=== PATIENT | male | born 1995 | race Asian ===

== ENCOUNTER 2018-11-26 01:33 | Emergency (ER) | payer OTHER ==
--- NOTE | 2018-11-26 01:57 | ED ---
Syncope/Near Syncope - HPI Summary HPI Summary: A 22 y/o male presents to [facility] with a chief complaint of a syncopal episode tonight. He reports that he did not see this coming as he felt fine while shopping at [employer], being driven home by his friend, walking up the stairs to his apartment, until he got into his apartment and took his shoes off. The last thing he remembers is taking his shoes off and then he work up on the floor. He did have any warning signs of the syncopal episode, but reports that when he woke up he did feel dizzy. He denies SOB or sweating. He claims that two days ago he felt tachycardic and one week ago he had a light chest pain like someone was squeezing his heart. He reports a Hx of anemia and hypotension, as he claims that he used to get lightheaded years ago. He denies taking medications. - History Of Current Complaint Chief Complaint: EDSyncope Time Seen by Provider: 11/26/18 01:42 Hx Obtained From: Patient Onset/Duration: Sudden Onset, Lasting Minutes, Resolved Timing: Intermittent Episode Lasting - 1 episode, unknown length Context: Unwitnessed Activity At Onset: Other - walking into his apartment Associated Head Trauma: No Aggravating Factor(s): Nothing Alleviating Factor(s): Nothing Associated Signs And Symptoms: Negative - sweating, SOB, Other - dizziness - Allergies/Home Medications Allergies/Adverse Reactions: Allergies Allergy/AdvReac Type Severity Reaction Status Date / Time No Known Allergies Allergy Verified 11/26/18 02:10 PMH/Surg Hx/FS Hx/Imm Hx Endocrine/Hematology History: Reports: Hx Anemia Denies: Hx Diabetes Cardiovascular History: Reports: Hx Hypotension - Surgical History Surgery Procedure, Year, and Place: Oral surgery at 7 y/o Infectious Disease History: No Infectious Disease History: Denies: Traveled Outside the [place] in Last 30 Days - Family History Known Family History: Negative: Hypertension, Diabetes - Social History Occupation: Student Alcohol Use: None Hx Substance Use: No Substance Use Type: Reports: None Hx Tobacco Use: No Smoking Status (MU): Never Smoked Tobacco Review of Systems Negative: Fever, Skin Diaphoresis Negative: Shortness Of Breath Neurological: Other - 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 No murmurs. Normal distal pulses in tibial and radial bilaterally. Abdomen: Soft, nontender, normal active bowel sounds present Musculoskeletal: Normal, Strength/ROM Intact Neurological: A&Ox3, awake and alert, mentation is normal, speech is fluent and appropriate Psychiatric: affect is normal, does not appear anxious or depressed Triage Information Reviewed: Yes Vital Signs On Initial Exam: Initial Vitals Temp Pulse Resp BP Pulse Ox 98.7 F 85 16 144/83 96 11/26/18 01:34 11/26/18 01:34 11/26/18 01:34 11/26/18 01:34 11/26/18 01:34 Vital Signs Reviewed: Yes Diagnostics - Vital Signs Vital Signs Temp Pulse Resp BP Pulse Ox 11/26/18 01:34 98.7 F 85 16 144/83 96 - Laboratory Result Diagrams: 11/26/18 02:09 11/26/18 02:09 Lab Statement: Any lab studies that have been ordered have been reviewed, and results considered in the medical decision making process. - Radiology CXR Radiology Interpretation Completed By: ED Physician Summary of Radiographic Findings: no acute process. Pending official imaging report. - EKG 02:09 Cardiac Rate: NL - 82 bpm EKG Rhythm: Sinus Rhythm Summary of EKG Findings: NSR at 82 bpm with early repolarization. Course/Dx Course Of Treatment: This is a healthy 22-year-old man who suffered a bout of syncope this evening. This occurred after he walked up a flight of stairs with some groceries. He felt fine when he was shopping. There was no prodrome, which is somewhat concerning. His EKG looks fairly typical for a young man with some early repolarization, but no sign of conduction abnormality or Brugada pattern. Screening laboratory studies and EKG will be obtained to rule out electrolyte abnormality, anemia, or other significant problem. Barring any unforeseen at around here, or recurrence of his symptoms, I anticipate he will be discharged home. His CXR was negative and bloodwork and chemistries were obtained and WNL. The patient will be discharged and was instructed to follow up with cardiology. The patient is agreeable with this plan. - Diagnoses Provider Diagnoses: Syncope Discharge - Sign-Out/Discharge Documenting (check all that apply): Patient Departure - DC Patient Received Moderate/Deep Sedation with Procedure: No - Discharge Plan Condition: Good Disposition: HOME Patient Education Materials: Syncope (ED) Referrals: Marilin Garcia MD [Medical Doctor] - Additional Instructions: The cause of your fainting spell tonight is not entirely clear, but we did not turn up any significant problems on the testing we did tonight. I would suggest scheduling a followup visit with a academic vice president. If you pass out again, you should return here. Over the weekend, try to rest before heading back to classes on Wednesday. - Billing Disposition and Condition Condition: GOOD Disposition: Home - Attestation Statements Document Initiated by Shaune: Yes Documenting Scribe: Connor Sheehan Provider For Whom Maximiliano is Documenting (Include Credential): aKvon Moreno MD Scribe Attestation: IConnor, scribed for Kavon Moreno MD on 11/26/18 at 0642. Scribe Documentation Reviewed: Yes Provider Attestation: The documentation as recorded by the Connor bullock accurately reflects the service I personally performed and the decisions made by me, Kavon Moreno MD Status of Scribe Document: Viewed
[2018-11-26 02:17] LABS: ABS Basophils 0 10^3/ul (0-0.2); ABS Eosinophils 0.1 10^3/ul (0-0.6); ABS Lymphocytes 3.3 10^3/ul (1.0-4.8); ABS Monocytes 0.5 10^3/ul (0-0.8); ABS Neutrophils 3.5 10^3/ul (1.5-7.7); ABS Nucleated RBC 0 10^3/ul; Hematocrit 45 % (36-46); Hemoglobin 15.1 g/dL (14.0-18.0); Lymphocyte % 44.1 %; Mean Corpuscular HGB Conc 34 g/dL (31-36); Mean Corpuscular Hemoglobin 32 pg (27-31); Mean Corpuscular Volume 94 fL (80-94); Mean Platelet Volume 8.4 fL (7.4-10.4); Nucleated Red Blood Cells % 0.1; Platelet Count 191 10^3/uL (150-450); Red Blood Count 4.76 10^6 /uL (4.18-5.48); Red Cell Distribution Width 13 % (10.5-15); White Blood Count 7.4 10^3/uL (3.5-10.8)
[2018-11-26 02:36] LABS: ALT 18 U/L (7-52); Albumin 4.7 g/dL (3.2-5.2); Albumin/Globulin Ratio 1.8 (1-3); Alkaline Phosphatase 56 U/L (34-104); BUN/Creatinine Ratio 16.1 (8-20); Blood Urea Nitrogen 18 mg/dL (6-24); CO2 Carbon Dioxide 26 mmol/L (22-32); Calcium 9.6 mg/dL (8.6-10.3); Chloride 104 mmol/L (101-111); EGFR African American 100.1 (>60); EGFR Non-African American 82.8 (>60); Globulin 2.6 g/dL (2-4); Glucose 108 mg/dL (70-100); Sodium 138 mmol/L (135-145); Total Protein 7.3 g/dL (6.4-8.9)
[2018-11-26 02:46] LABS: Alcohol < 10 mg/dL (<10)
[2018-11-26 02:49] VITALS: BP 125/71
[2018-11-26 03:21] LABS: AST 17 U/L (13-39); Anion Gap 8 mmol/L (2-11); Potassium 3.8 mmol/L (3.5-5.0)
== END 2018-11-26 02:48 | disposition home or self-care (01) ==
LOC: ED 01:33
DX: R55 Syncope and collapse (principal); D64.9 Anemia, unspecified
CPT/HCPCS: 36415; 71046; 80053; 80320; 85025; 93005; 99281; G0480